=== PATIENT | female | born 1970 | race African-American/Black ===

== ENCOUNTER → 2021-07-12 | Outpatient (CLI) | payer BC ==
[2021-07-12 12:00] LABS: EOSINOPHILS % 2.4 % (0.0-5.0); HEMATOCRIT. 41.2 % (36.0-48.0); HEMOGLOBIN. 13.5 g/dL (12.0-16.0); LYMPHOCYTES % 21.6 % (20.0-50.0); MEAN CORPUSCULAR HEMOGLOBIN 28.5 pg (28.0-32.0); MEAN CORPUSCULAR VOLUME 86.8 fL (81.0-99.0); MONOCYTES % 6.4 % (2.0-8.0); NEUTROPHILS % 68.6 % (40.0-76.0); PLATELET 275 x1000/uL (130-400); RED BLOOD CELL COUNT 4.74 mill/uL (4.2-5.4); RED CELL DISTRIBUTION WIDTH 15.3 % (11.6-14.6)
[2021-07-12 14:18] LABS: VITAMIN B12 SERUM 266 pg/mL (211-911)
== END | disposition home or self-care (01) ==
LOC: LAB 11:35
PROVIDERS: ATTEND Internal Medicine
DX: Z00.8 Encounter for other general examination (principal); E78.00 Pure hypercholesterolemia, unspecified; D64.9 Anemia, unspecified
CPT/HCPCS: 36415; 82306; 82607; 85025

== ENCOUNTER 2021-10-29 12:25 | Emergency (ER) | payer BC ==
[~2021-10-29] VITALS: Ht 165.1 cm; Wt 75.0 kg
[2021-10-29 12:32] VITALS: BP 122/77
== END 2021-10-29 14:38 | disposition home or self-care (01) ==
LOC: ER 12:25
DX: R21 Rash and other nonspecific skin eruption (principal); R22.0 Localized swelling, mass and lump, head; R22.33 Localized swelling, mass and lump, upper limb, bilateral; Z91.018 Allergy to other foods
CPT/HCPCS: 99281